=== PATIENT | male | born 2005 | race Caucasian/White ===

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

== ENCOUNTER 2023-06-04 07:40 | Emergency (ER) | payer OTHER ==
[~2023-06-04] VITALS: Ht 167.6 cm; Wt 68.0 kg
--- OUTSIDE RECORDS SUMMARY | ~2023-06-04 | XMS | Continuity of Care Document ---
Demographics + + + | Address | [address] | | | [place] [address] | + + + | Preferred Language | Unknown | + + + | Marital Status | Never | + + + | Orthodoxy Affiliation | Unknown | + + + | Race | White | + + + | Ethnic Group | Not or | + + + Author + + + | Author | [facility] | + + + | Organization | [facility] | + + + | Address | [address] | | | [place] [address] | + + + | Phone | | + + + Care Team Providers + + + + | Care Curer Acid Drum Name | Role | Phone | + + + + Unavailable | Unavailable | + + + + Unavailable | Unavailable | + + + + Allergies and Intolerances + + + + + + | date | description | facility | reaction | severity | + + + + + + | (no date) | Wasp venom | [facility] | (no reaction) | (no severity) | | [facility] | | | + + + + + + | (no date) | Wasp venom | [facility] | (no reaction) | (no severity) | | | [facility] | | | + + + + + + Encounters No information. Functional Status No information. Immunizations No information. Medications + + + + | date | description | facility | + + + + | 2022-08-30 00:00 | ALBUTEROL SULFATE | [facility] | + + + + | 2022-12-19 00:00 | ALBUTEROL SULFATE | [facility] | + + + + | 2022-08-30 00:00 | FLUTICASONE PROPIONATE | [facility] | + + + + | 2022-12-19 00:00 | FLUTICASONE PROPIONATE | [facility] | + + + + Problems + + + + | date | description | facility | + + + + | 2022-03-08 00:00 | Strain of lumbar region | [facility] | + + + + | 2022-08-30 00:00 | Acute bronchitis | [facility] | + + + + | 2022-12-19 00:00 | Viral gastroenteritis | [facility] | + + + + Procedures No information. Results/Labs +--------+--------+ +---------+--------+---------+ | test | date | facility | value | unit | notes | +--------+--------+ +---------+--------+---------+ + + | Result panel 1 | + + + + + + + + + | | 2022-08-30 | [facility] | NEGATIVE | (missing) | (missing) | | (unavailable | 05:29 | [facility] | | | | + + + + + + + + + | Result panel 2 | + + + + + + + + + | | 2022-08-30 | [facility] | NEGATIVE | (missing) | (missing) | | (unavailable | 05:29 | [facility] | | | | + + + + + + + + + | Result panel 3 | + + + + + + + + + | | 2022-08-30 | [facility] | NEGATIVE | (missing) | (missing) | | (unavailable | 05:29 | [facility] | | | | + + + + + + + + + | Result panel 4 | + + + + + + + + + | | 2022-08-30 | [facility] | NEGATIVE | (missing) | (missing) | | (unavailable | 05:29 | [facility] | | | | + + + + + + + + + | Result panel 5 | + + + + + +-------+ + + | | 2022-12-19 | [facility] | 7.4 | (missing) | (missing) | | (unavailable | 18:59:08 | [facility] | | | | + + + +-------+ + + + + | Result panel 6 | + + + + + +--------+ + + | | 2022-12-19 | [facility] | 58.4 | (missing) | (missing) | | (unavailable | 18:59:08 | [facility] | | | | + + + +--------+ + + + + | Result panel 7 | + + + + + +--------+ + + | | 2022-12-19 | [facility] | 27.4 | (missing) | (missing) | | (unavailable | 18:59:08 | [facility] | | | | + + + +--------+ + + + + | Result panel 8 | + + + + + +--------+ + + | | 2022-12-19 | [facility] | 11.0 | (missing) | (missing) | | (unavailable | 18:59:08 | [facility] | | | | + + + +--------+ + + + + | Result panel 9 | + + + + + +-------+ + + | | 2022-12-19 | [facility] | 2.6 | (missing) | (missing) | | (unavailable | 18:59:08 | [facility] | | | | + + + +-------+ + + + + | Result panel 10 | + + + + + +-------+ + + | | 2022-12-19 | [facility] | 0.6 | (missing) | (missing) | | (unavailable | 18:59:08 | [facility] | | | | + + + +-------+ + + + + | Result panel 11 | + + + + + +------+---------+ + | | 2022-12-19 | [facility] | 92 | mg/dL | (missing) | | (unavailable | 18:59:08 | [facility] | | | | + + + +------+---------+ + + + | Result panel 12 | + + + + + +------+---------+ + | | 2022-12-19 | [facility] | 19 | mg/dL | (missing) | | (unavailable | 18:59:08 | [facility] | | | | + + + +------+---------+ + + + | Result panel 13 | + + + + + +--------+---------+ + | | 2022-12-19 | [facility] | 1.03 | mg/dL | (missing) | | (unavailable | 18:59:08 | [facility] | | | | + + + +--------+---------+ + + + | Result panel 14 | + + + + + +-------+ + + | | 2022-12-19 | [facility] | 107 | (missing) | (missing) | | (unavailable | 18:59:08 | [facility] | | | | + + + +-------+ + + + + | Result panel 15 | + + + + + +---------+ + + | | 2022-12-19 | [facility] | 18.44 | (missing) | (missing) | | (unavailable | 18:59:08 [facility] | | | | + + + +---------+ + + + + | Result panel 16 | + + + + + +--------+ + + | | 2022-12-19 | [facility] | 5.54 | (missing) | (missing) | | (unavailable | 18:59:08 [facility] | | | | + + + +--------+ + + + + | Result panel 17 | + + + + + +-------+ + + | | 2022-12-19 | [facility] | 141 | (missing) | (missing) | | (unavailable | 18:59:08 [facility] | | | | + + + +-------+ + + + + | Result panel 18 | + + + + + +-------+ + + | | 2022-12-19 | [facility] | 3.6 | (missing) | (missing) | | (unavailable | 18:59:08 [facility] | | | | + + + +-------+ + + + + | Result panel 19 | + + + + + +-------+ + + | | 2022-12-19 | [facility] | 104 | (missing) | (missing) | | (unavailable | 18:59:08 | [facility] | | | | + + + +-------+ + + + + | Result panel 20 | + + + + + +------+ + + | | 2022-12-19 | [facility] | 27 | (missing) | (missing) | | (unavailable | 18:59:08 | [facility] | | | | + + + +------+ + + + + | Result panel 21 | + + + + + +--------+ + + | | 2022-12-19 | [facility] | 13.6 | (missing) | (missing) | | (unavailable | 18:59:08 [facility] | | | | + + + +--------+ + + + + | Result panel 22 | + + + + + +-------+---------+ + | | 2022-12-19 | [facility] | 9.1 | mg/dL | (missing) | | (unavailable | 18:59:08 [facility] | | | | + + + +-------+---------+ + + + | Result panel 23 | + + + + + +-------+ + + | | 2022-12-19 | [facility] | 8.0 | (missing) | (missing) | | (unavailable | 18:59:08 [facility] | | | | + + + +-------+ + + + + | Result panel 24 | + + + + + +-------+ + + | | 2022-12-19 | [facility] | 4.5 | (missing) | (missing) | | (unavailable | 18:59:08 [facility] | | | | + + + +-------+ + + + + | Result panel 25 | + + + + + +-------+ + + | | 2022-12-19 | [facility] | 3.5 | (missing) | (missing) | | (unavailable | 18:59:08 [facility] | | | | + + + +-------+ + + + + | Result panel 26 | + + + + + +--------+ + + | | 2022-12-19 | [facility] | 1.29 | (missing) | (missing) | | (unavailable | 18:59:08 [facility] | | | | + + + +--------+ + + + + | Result panel 27 | + + + + + +--------+ + + | | 2022-12-19 | [facility] | 15.7 | (missing) | (missing) | | (unavailable | 18:59:08 [facility] | | | | + + + +--------+ + + + + | Result panel 28 | + + + + + +-------+ + + | | 2022-12-19 | [facility] | 0.5 | (missing) | (missing) | | (unavailable | 18:59:08 [facility] | | | | + + + +-------+ + + + + | Result panel 29 | + + + + + +------+ + + | | 2022-12-19 | [facility] | 36 | (missing) | (missing) | | (unavailable | 18:59:08 | [facility] | | | | + + + +------+ + + + + | Result panel 30 | + + + + + +------+ + + | | 2022-12-19 | [facility] | 73 | (missing) | (missing) | | (unavailable | 18:59:08 [facility] | | | | + + + +------+ + + + + | Result panel 31 | + + + + + +-------+ + + | | 2022-12-19 | [facility] | 111 | (missing) | (missing) | | (unavailable | 18:59:08 [facility] | | | | + + + +-------+ + + + + | Result panel 32 | + + + + + +------+ + + | | 2022-12-19 | [facility] | 81 | (missing) | (missing) | | (unavailable | 18:59:08 [facility] | | | | + + + +------+ + + + + | Result panel 33 | + + + + + +--------+ + + | | 2022-12-19 | [facility] | 47.6 | (missing) | (missing) | | (unavailable | 18:59:08 [facility] | | | | + + + +--------+ + + + + | Result panel 34 | + + + + + +--------+ + + | | 2022-12-19 | [facility] | 85.9 | (missing) | (missing) | | (unavailable | 18:59:08 [facility] | | | | + + + +--------+ + + + + | Result panel 35 | + + + + + +--------+ + + | | 2022-12-19 | [facility] | 28.4 | (missing) | (missing) | | (unavailable | 18:59:08 [facility] | | | | + + + +--------+ + + + + | Result panel 36 | + + + + + +--------+ + + | | 2022-12-19 | [facility] | 33.0 | (missing) | (missing) | | (unavailable | 18:59:08 [facility] | | | | + + + +--------+ + + + + | Result panel 37 | + + + + + +--------+ + + | | 2022-12-19 | [facility] | 14.0 | (missing) | (missing) | | (unavailable | 18:59:08 | [facility] | | | | + + + +--------+ + + + + | Result panel 38 | + + + + + +-------+ + + | | 2022-12-19 | [facility] | 251 | (missing) | (missing) | | (unavailable | 18:59:08 | [facility] | | | | + + + +-------+ + + Social History + + + + | date | description | facility | + + + + | 2022-08-30 00:00 | Unknown if ever smoked | [facility] | + + + + | 2022-12-19 00:00 | Unknown if ever smoked | [facility] | + + + + Vital Signs + + + +---------+ | date | measurement | value | units | + + + +---------+ | 2022-08-30 00:00 | BMI | 23.8 | kg/m2 | + + + +---------+ | 2022-08-30 00:00 | BP_diastolic | 55 | mmHg | + + + +---------+ | 2022-08-30 00:00 | BP_systolic | 124 | mmHg | + + + +---------+ | 2022-08-30 00:00 | heart_rate | 86 | /min | + + + +---------+ | 2022-08-30 00:00 | height_metric | 167.64 | cm | + + + +---------+ | 2022-08-30 00:00 | height_standard | 66 | in | + + + +---------+ | 2022-08-30 00:00 | o2_saturation | 99 | % | + + + +---------+ | 2022-08-30 00:00 | respiration_rate | 18 | /min | + + + +---------+ | 2022-08-30 00:00 | temperature_metric | 36.83 | C | | | | | | + + + +---------+ | 2022-08-30 00:00 | | 98.3 | F | | | temperature_standar | | | | | d | | | + + + +---------+ | 2022-08-30 00:00 | weight_metric | 67 | kg | + + + +---------+ | 2022-08-30 00:00 | weight_standard | 147.71 | lb | + + + +---------+ | 2022-12-19 00:00 | BMI | 23.7 | kg/m2 | + + + +---------+ | 2022-12-19 00:00 | BMI | 50 | % | + + + +---------+ | 2022-12-19 00:00 | BP_diastolic | 65 | mmHg | + + + +---------+ | 2022-12-19 00:00 | BP_systolic | 111 | mmHg | + + + +---------+ | 2022-12-19 00:00 | heart_rate | 97 | /min | + + + +---------+ | 2022-12-19 00:00 | height_metric | 167.64 | cm | + + + +---------+ | 2022-12-19 00:00 | height_standard | 66 | in | + + + +---------+ | 2022-12-19 00:00 | o2_saturation | 100 | % | + + + +---------+ | 2022-12-19 00:00 | respiration_rate | 16 | /min | + + + +---------+ | 2022-12-19 00:00 | temperature_metric | 37 | C | | | | | | + + + +---------+ | 2022-12-19 00:00 | | 98.6 | F | | | temperature_standar | | | | | d | | | + + + +---------+ | 2022-12-19 00:00 | weight_metric | 66.68 | kg | + + + +---------+ | 2022-12-19 00:00 | weight_standard | 147 | lb | + + + +---------+"
--- OUTSIDE RECORDS SUMMARY | ~2023-06-04 | XMS | Continuity of Care Document ---
Demographics + + + | Address | [address] | | | [place] [address] | + + + | Preferred Language | Unknown | + + + | Marital Status | Never | + + + | Tenriism Affiliation | Unknown | + + + | Race | White | + + + | Ethnic Group | Not or | + + + Author + + + | Author | [place] | + + + | Organization | [place] | + + + | Address | [address] | | | [place] [address] | + + + | Phone | | + + + Care Team Providers + + + + | Care Speech Language Pathologist Travel Name | Role | Phone | + [...] | 2022-08-30 00:00 | ALBUTEROL SULFATE | [facility] | + + + + | 2022-12-19 00:00 | ALBUTEROL SULFATE | [facility] | + + + + | 2022-08-30 00:00 | FLUTICASONE PROPIONATE | [facility] | + + + + | 2022-12-19 00:00 | FLUTICASONE PROPIONATE | [facility] | + + + + Problems + + + + | date | description | facility | + + + + | 2022-03-08 00:00 | Strain of lumbar region | [facility] | + + + + | 2022-08-30 00:00 | Acute bronchitis | [facility] | + + + + | 2022-12-19 00:00 | Viral gastroenteritis | [facility] | + + + + Procedures No information. Results/Labs +--------+--------+ +---------+--------+---------+ | test | date | facility | value | unit | notes | +--------+--------+ +---------+--------+---------+ + + | Result panel 1 | + + + + + + + + + | | 2022-08-30 | [facility] | NEGATIVE | (missing) | (missing) | | (unavailable | 05:29 | [facility] | | | | | ) | [...] +-------+ + + | | 2022-12-19 | [facility] | [address] | (missing) | (missing) | | (unavailable | 18:59:08 | [facility] | | | | + + + +-------+ + + Social History + + + + | date | description | facility | + + + + | 2022-08-30 00:00 | Unknown if ever smoked | [facility] | + + + + | 2022-12-19 00:00 | Unknown if ever smoked | [facility] | + + + + Vital [...]
[2023-06-04 08:50] VITALS: BP 120/89
== END 2023-06-04 08:50 | disposition home or self-care (01) ==
LOC: ED 07:40
DX: J02.9 Acute pharyngitis, unspecified (principal); J45.909 Unspecified asthma, uncomplicated; Z91.030 Bee allergy status; Z79.899 Other long term (current) drug therapy
CPT/HCPCS: 87502; 87651; 99283; U0002

== ENCOUNTER 2025-09-11 09:10 | Emergency (ER) | payer OTHER ==
[~2025-09-11] VITALS: Ht 167.6 cm; Wt 88.4 kg
[2025-09-11] MEDS ORDERED: AMOX TR-K CLV1 EAC1 PO (10:07)
[2025-09-11 10:16] VITALS: BP 130/70
== END 2025-09-11 10:15 | disposition home or self-care (01) ==
LOC: ED 09:10
DX: K04.7 Periapical abscess without sinus (principal); J45.909 Unspecified asthma, uncomplicated; Z79.51 Long term (current) use of inhaled steroids; Z91.030 Bee allergy status
CPT/HCPCS: 99282